=== PATIENT | male | born 1990 | race Two or more races ===

== ENCOUNTER 2022-08-05 09:02 | Outpatient (CLI) | payer OTHER | END 2022-08-05 09:03 | disposition home or self-care (01) | LOC: LAB 09:02 | PROVIDERS: ATTEND Internal Medicine Cardiovascular Disease | DX: E78.1 Pure hyperglyceridemia (principal); R19.7 Diarrhea, unspecified; N39.0 Urinary tract infection, site not specified; B20 Human immunodeficiency virus [HIV] disease; K85.90 Acute pancreatitis without necrosis or infection, unspecified; E78.00 Pure hypercholesterolemia, unspecified; I10 Essential (primary) hypertension; A64 Unspecified sexually transmitted disease ==

== ENCOUNTER 2022-08-11 08:37 | Outpatient (CLI) | payer OTHER | END 2022-08-11 08:44 | disposition home or self-care (01) | LOC: MRI 08:37 | PROVIDERS: ATTEND Internal Medicine Cardiovascular Disease | DX: K85.90 Acute pancreatitis without necrosis or infection, unspecified (principal); K56.690 Other partial intestinal obstruction | CPT/HCPCS: 74181 ==